=== PATIENT | female | born 1950 | race Caucasian/White ===

== ENCOUNTER 2021-08-12 14:41 | Outpatient (REF) | payer MEDICARE, OTHER, SELFPAY ==
[2021-08-14 12:33] LABS: COVID-19 RT-PCR UVMMC Result Negative (Negative)
== END 2021-08-12 14:42 | disposition home or self-care (01) ==
LOC: LBN 14:41
PROVIDERS: PCP Internal Medicine; Visit Provider Nurse Practitioner Family
DX: R35.0 Frequency of micturition (principal); Z20.822 Contact with and (suspected) exposure to COVID-19; J06.9 Acute upper respiratory infection, unspecified
CPT/HCPCS: 87077; U0003; 87086; 87186

== ENCOUNTER 2023-01-25 17:39 | Outpatient (CLI) | payer MEDICARE, SELFPAY ==
--- NOTE | 2023-01-25 | DI.RAD_ITS ---
Exam(s) XR SHOULDER RT COMPLETE 2+V EXAM: XR SHOULDER RT COMPLETE 2+V CLINICAL HISTORY: RT SHOULDER PAIN, M25.511, ? ARTHRITIS OR JT SPACE NARROWING. TECHNIQUE: 2D digital imaging was performed. COMPARISON: No exams were available for comparison FINDINGS: Six views No evidence of acute fracture or dislocation or abnormal soft tissue calcifications. Subacromial spa ce is not diminished. There are no obvious degenerative changes glenohumeral joint. Mild degenerati ve changes in the AC joint. Ipsilateral clavicle unremarkable. Bone density normal. No osseous les ions. IMPRESSION: No significant osseous findings in the right shoulder. Wet read DATA REPOSITORY: RADIATION DOSE DELIVERED:
== END 2023-01-25 17:59 ==
LOC: DI 17:40
PROVIDERS: PCP Internal Medicine; Visit Provider Physician Assistant Medical
DX: M25.511 Pain in right shoulder (principal)
CPT/HCPCS: 73030

== ENCOUNTER 2024-04-11 10:21 | Day surgery (SDC) | payer MEDICARE, SELFPAY ==
[2024-04-11 11:49] VITALS: BP 154/86; PULSE 70; RESP 18; TEMP 36.8; O2SAT 98
[2024-04-11] MEDS: Tropicam./Phenyleph. (1/2.5%) 5 ML BTL OD ×3 (11:55→12:06)
--- NOTE | 2024-04-11 11:56 | ANES.PREOP_ITS ---
General Info Date of Service Date Performed: 04/11/24 Height: 5 ft 3 in Weight: 137.3 kg Body Mass Index (BMI): 53.6 Surgical Procedure: Operation Date: 04/11/24 13:40 Proposed Procedure Side Surgeon p Cataract Extraction with IOL Implant Right Gomez Corrales MD Meds Allergies and Home Medications Allergies Allergy/AdvReac Type Severity Reaction Status Date / Time Penicillins Allergy unknown ? Verified 04/11/24 11:41 rash Sulfa (Sulfonamide Allergy ? rash Verified 04/11/24 11:41 Antibiotics) Home Medication ?Medication ?Instructions ?Recorded albuterol sulfate 90 mcg/actuation 2 puff inhalation Q4H PRN ##1 10/19/13 aerosol inhaler furosemide 20 mg tablet 20 mg PO PRN PRN 10/19/13 lisinopril 40 mg tablet 40 mg PO DAILY 10/19/13 omeprazole 20 mg capsule,delayed 20 mg PO DAILY 10/19/13 release pravastatin 40 mg tablet 40 mg PO DAILY 10/19/13 amlodipine 5 mg tablet 5 mg PO DAILY 03/26/24 diazepam 5 mg tablet 5 mg PO DIRECTED 03/26/24 doxepin 10 mg capsule 10 mg PO HS 03/26/24 fluoxetine 10 mg capsule 10 mg PO DAILY 03/26/24 fluoxetine 40 mg capsule 40 mg PO DAILY 03/26/24 furosemide 40 mg tablet 40 mg PO DAILY 03/26/24 metformin 500 mg tablet 500 mg PO DAILY 03/26/24 cholecalciferol (vitamin D3) 25 2,000 unit PO DAILY 04/11/24 mcg (1,000 unit) tablet (Vitamin D3) vitamins A,C,S-ytjh-dljjge 2,148 2 tab PO ONCE 04/11/24 mcg-113 mg-45 mg-17.4 mg tablet (PreserVision AREDS) Current Visit Medications: Current Medications Generic Name Dose Route Start Last Admin Trade Name Freq PRN Reason Stop Dose Admin Acetaminophen 1,000 mg 04/11/24 06:00 Acetaminophen 500 Mg Tab PO 05/11/24 05:59 Q4H PRN PRN Balanced Salt Solution 500 ml 04/11/24 06:00 Balanced Salt Soln.-Plus 500 Ml Bag OP 05/11/24 05:59 DIRECTED ALEJANDRO Miscellaneous Medication 0 ml 04/11/24 06:00 Prednisolone 1%, Moxifloxacin 0.5%, Bromfenac 0.09% 5ml Btl OD 05/11/24 05:59 DIRECTED COUNT INCLUDES THE [facility] Miscellaneous Medication 0 ml 04/11/24 06:00 Tropicam./Phenyleph. (1/2.5%) 5 Ml Btl OD 05/11/24 05:59 DIRECTED COUNT INCLUDES THE [facility] Tetracaine HCl 0 ml 04/11/24 06:00 Tetracaine 0.5% 4 Ml Btl OD 05/11/24 05:59 DIRECTED COUNT INCLUDES THE [facility] PFSH Active Problems Active Problems: Problem Status Onset Code Posterior subcapsular age-related cataract, right eye Acute H25.041 Cortical age-related cataract, right eye Acute H25.011 Nuclear age-related cataract, right eye Acute H25.11 Medical History Medical History TIERRA (obstructive sleep apnea) Incontinence Obesity Recurrent UTI Depression Hiatal hernia GERD (gastroesophageal reflux disease) HTN (hypertension) HLD (hyperlipidemia) Medical History Comments:: Per pt. states when she had previous procedure they have a hard time waking her up Surgical History Surgical History History of toe surgery History of bladder suspension procedure S/P rotator cuff repair History of bilateral knee replacement Tobacco Smoking/Tobacco Use Status: Former Tobacco Use Alcohol Alcohol Intake: never Substance Use Substance use: Never Substance use type: does not use Vital Signs and Lab Results Vital Signs Most Recent Vital Signs in EMR: Most Recent Vital Signs Temp Pulse Resp BP Pulse Ox 36.8 C 70 18 154/86 H 98 04/11/24 11:49 04/11/24 11:49 04/11/24 11:49 04/11/24 11:49 04/11/24 11:49 Point of Care Results Point of Care Results: Finger Stick Blood Glucose 97 04/11/24 11:25 Lab Results Blood Type / Crossmatch: No Data to Display Complete Blood Count: No Data to Display Complete Metabolic Panel: No Data to Display Liver Function Panel: No Data to Display Coagulation Panel: No Data to Display Cardiac Panel: No Data to Display Arterial Blood Gas: No Data to Display Venous Blood Gas: No Data to Display Pancreas Panel: No Data to Display Thyroid Panel: No Data to Display Infectious Disease: No Data to Display Blood Cultures: No Data to Display Toxicology Panel: No Data to Display Anesthesia Assessment and Plan Anesthesia History Personal History: Delayed Emergence Family History: No Family History of Anesthesia Complications Exercise Tolerance Exercise Tolerance: Metabolic Equivalents>4 Pertinent Negatives Pertinent Negatives: No Symptoms of GERD Cardiac & Pulmonary Exam Cardiac Exam: Normal S1/S2 Heart Sounds Pulmonary Exam: Clear Bilateral Breath Sounds Implantable Cardiac Device Does patient have a Pacemaker or an ICD?: No Airway Exam Known Difficult Airway: No Mallampati Class: 2 Mouth Opening: Normal (> 3cm) Thyromental Distance: Less than 3 cm Neck Range of Motion: Full ROM Neck Circumference: Normal Teeth Condition: Removable Dentures/Plates Upper and Removable Dentures/Plates Lower ASA Classification ASA Score: ASA 3 Emergency Case?: No NPO Status NPO Status: NPO Clears >2 hours, Solids >8 hours Anesthesia Plan Resuscitation Status: Full Code Anesthesia Technique: MAC Anesthesia Airway Planned: Natural Airway Monitors Used: Standard Monitors
[2024-04-11 11:57] VITALS: BMI 53.6
[2024-04-11] MEDS: Tetracaine 0.5% 4 ML BTL OD (13:08)
[2024-04-11] MEDS: Povidone-Iodine Ophth 30 ML BTL (13:09)
[2024-04-11] MEDS: Duovisc Viscoelastic System EACH 1 EACH (13:14)
[2024-04-11] MEDS: Balanced Salt Soln.-PLUS 500 ML BAG OP (13:14)
[2024-04-11] MEDS: Lidocaine 1% Pres-Free 5 ML VIAL (13:14)
[2024-04-11 13:30] VITALS: BP 166/84; PULSE 71; RESP 20; TEMP 36.4; O2SAT 94
--- NOTE | 2024-04-11 13:33 | W.PM.DSUDISC ---
Date of service: 04/11/24 Time of Service: 13:33 Discharge Plan Disposition Patient Disposition: Home Discharge Details Attending Provider: Gomez Corrales Primary Care Provider: Kadi Ryan Home Meds and New Rx's Prescriptions: No Action metformin 500 mg tablet 500 mg PO DAILY Patient Comments: TAKE ONE TABLET BY MOUTH EVERY DAY WITH MEALS diazepam 5 mg tablet 5 mg PO DIRECTED Patient Comments: TAKE 1 TABLET BY MOUTH 1 HOUR BEFORE MRI FOR CLAUSTROPHOBIA ,OK TO REPEAT ONE DOSE IF FIRST DOSE INEFFECTIVE amlodipine 5 mg tablet 5 mg PO DAILY Patient Comments: TAKE ONE TABLET BY MOUTH EVERY DAY doxepin 10 mg capsule 10 mg PO HS Patient Comments: TAKE ONE CAPSULE BY MOUTH AT BEDTIME furosemide 40 mg tablet 40 mg PO DAILY Patient Comments: TAKE ONE TABLET BY MOUTH EVERY DAY fluoxetine 40 mg capsule 40 mg PO DAILY Patient Comments: TAKE ONE CAPSULE BY MOUTH EVERY DAY fluoxetine 10 mg capsule 10 mg PO DAILY Patient Comments: TAKE ONE CAPSULE BY MOUTH EVERY DAY FOR 1 WEEK; THEN INCREASE TO TWO CAPSULES PER DAY pravastatin 40 MG tablet 40 mg PO DAILY omeprazole 20 MG capsule,delayed release(DR/EC) 20 mg PO DAILY furosemide 20 MG tablet 20 mg PO PRN PRN lisinopril 40 MG tablet 40 mg PO DAILY albuterol sulfate 8.5 GM HFA aerosol inhaler 2 puff Inhalation Q4H PRNQty: 1 0RF PreserVision AREDS 2,148 mcg-113 mg-45 mg-17.4mg tablet 2 tab PO ONCE Patient Comments: take on in AM one in PM Rx Instructions: administer with a meal cholecalciferol (vitamin D3) [Vitamin D3] 25 mcg (1,000 unit) tablet 2,000 unit PO DAILY Discharge Instructions Stand Alone Forms: DSU Post-Op CataractBlade (DSU) Discharge Orders Discharge Orders: Discharge Order (Routine); Ordered 04/11/24 Ordered By: Gomez Corrales DS: Diagnosis Discharge Diagnosis (1) Posterior subcapsular age-related cataract, right eye: Status: Resolved (2) Cortical age-related cataract, right eye: Status: Resolved (3) Nuclear age-related cataract, right eye: Status: Resolved
--- NOTE | 2024-04-11 13:34 | W.PM.OP ---
Date of service: 04/11/24 Time of Service: 13:34 Operative Note Operative Note DATE OF PROCEDURE: 04/11/24 PRE-OP DIAGNOSIS: Nuclear/posterior subcapsular cataract, right eye POST-OP DIAGNOSIS: same PROCEDURE: Cataract extraction using phacoemulsification with intraocular lens implant, right eye SURGEON: Gomez Corrales ANESTHESIA TYPE: Local By Surgeon and MAC Refer to Anesthesia Record ESTIMATED BLOOD LOSS: 0 PATHOLOGY: none sent COMPLICATIONS: None Patient was transported to: same day Patient's condition: stable Implants: Rhys Clareon [id number] Indications: Progressive decreased vision due to cataract, right eye Procedure Description: CATARACT SURGERY OPERATIVE REPORT PREOPERATIVE DIAGNOSIS: Nuclear/posterior subcapsular cataract, right eye POSTOPERATIVE DIAGNOSIS: Same OPERATION: Cataract extraction using phacoemulsification with posterior chamber intraocular lens implant, right eye. IOL: IOL Electrician Journeyman Wireman/Model: Rhys Clareon [id number] IOL Power: + 21.0 diopters IOL Serial Number: [id number] Optic Diameter: 6.0mm Haptic/Overall Diameter: 13.0mm PHACO INFO: Rhys Userstorylaburion Vision System with OZil and Active Fluidics Cumulative Dispersed Energy (CDE): 7.05 seconds SURGEON: Gomez Corrales MD, ASAD ANESTHESIA: Monitored Anesthesia Care (MAC), with local sub-tenon's anesthetic infiltration COMPLICATIONS: None SPECIMENS: None INDICATIONS FOR PROCEDURE: The patient is a 73-year-old lady with history of diminished visual acuity in her right eye secondary to the development of nuclear/posterior subcapsular cataract. She is significantly symptomatic that she desires cataract surgery and attempt to improve and maximize her vision. See office notes for detailed information. PROCEDURE: The correct surgical eye was identified and marked as the right eye and the pupil was dilated in the preoperative area using mydriatics and cycloplegics. The dilated pupil size was 7.0 mm. The patient elected to proceed without oral sedation. The patient was brought to the operating room where cardiopulmonary monitoring was instituted and surgical time-out was performed, confirming the correct operative eye and IOL power. Topical anesthesia was administered and ophthalmic povidone-iodine 5% was instilled into the conjunctival fornices. The nevaeh-ocular area was prepped with Betadine 10% solution and draped in the usual sterile fashion for intraocular surgery, including an aperture drape. A Tegaderm transparent film dressing was cut in half and used to cover the lashes and lid margins. Care was taken to sequester the lashes and lid margins under the Tegaderm dressing. A lid speculum was placed between the lids of the operative eye and the Rhys LuxOR Revalia operating microscope was maneuvered into position. Madeleine scissors were then used to make a conjunctival buttonhole approximately 6mm posterior to the limbus in the inferonasal quadrant. Blunt dissection was carried out to expose bare sclera, and a blunt-tipped sub-tenon?s anesthesia cannula was introduced and passed posteriorly along the globe where non-preserved plain lidocaine was injected into posterior sub-Tenon?s space. A sideport knife was used to make a paracentesis port. Intraocular phenylephrine/lidocaine was injected into the anterior chamber. The anterior chamber was then filled with viscoelastic. A keratome knife was used to construct a two--plane clear corneal tunnel extending 2.0mm into clear cornea. A flap was raised on the anterior capsule and capsulorhexis forceps were used to complete a continuous curvilinear capsulorhexis of 5.5 mm. Balanced salt solution was then used to perform cortical cleaving hydrodissection and nuclear hydrodelineation until the lens could be freely rotated within the capsular bag. The lens nucleus was then disassembled and removed within the capsular bag and iris plane using phacoemulsification. Residual cortical material was removed using the I/A handpiece. The posterior capsule was carefully polished to remove as much residual lens epithelial cells as safely possible. The capsular bag was then inflated and the anterior chamber deepened with cohesive viscoelastic. The lens implant described above was inserted into the capsular bag using the Rhys Autonome Injector. A Kuglen hook was used to dial the IOL into position. Residual viscoelastic was then removed first from posterior to the IOL, then from the anterior chamber using the I/A handpiece. The lens implant was noted to center nicely within the capsular bag. The incisions were stromally hydrated, and the anterior chamber was reformed using BSS. Then 0.5cc of moxifloxacin 1.0mg/ml were injected into the capsular bag and anterior chamber. The incisions were checked with a Weck spear and found to be secure. Several drops of ophthalmic povidone-iodine 5% were then applied to the eye followed by two drops of combination steroid/NSAID/antibiotic solution. The drapes were removed and a clear plastic protective eye shield was placed over the eye. The patient was then returned to Same Day Surgery in stable condition.
--- NOTE | 2024-04-11 14:52 | W.ANESPOSTOP ---
Postoperative Evaluation Date, Time and Location Date Performed: 04/11/24 Time Performed: 13:35 Patient Location: Day Surgery Unit Vital Signs Most Recent Imported Vital Signs: Most Recent Vital Signs Temp Pulse Resp BP Pulse Ox 36.4 C L 71 20 166/84 H 94 04/11/24 13:30 04/11/24 13:30 04/11/24 13:30 04/11/24 13:30 04/11/24 13:30 Pain Score Most Recent Pain Score: Most Recent Pain Score Pain Level 0 04/11/24 13:30 Assessment Mental Status: Awake (Alert & Oriented to Patient Baseline) Airway and Respiratory Function: Patent airway with normal (patient baseline) respiratory exam Cardiovascular Function: Hemodynamically Stable Hydration Status: Adequately Hydrated Nausea & Vomiting: No Nausea or Vomiting Pain: Pt. Denies Any Pain Peripheral Nerve Block: Patient did not receive a nerve block
== END 2024-04-11 14:00 | disposition home or self-care (01) ==
PROVIDERS: PCP Internal Medicine; Visit Provider Ophthalmology
PROC: (CPT 66984; principal; 2024-04-11 13:30)
DX: H25.041 Posterior subcapsular polar age-related cataract, right eye (principal); H25.011 Cortical age-related cataract, right eye; H25.11 Age-related nuclear cataract, right eye
CPT/HCPCS: 66984; 00123; V2632; J2003

== ENCOUNTER 2024-05-28 10:26 | Outpatient (CLI) | payer MEDICARE, SELFPAY ==
--- NOTE | 2024-05-28 06:00 | DI.RAD_ITS ---
Exam(s) XR PAIN CLINIC LUMBAR SP 2V EXAM: XR PAIN CLINIC LUMBAR SP 2V CLINICAL HISTORY: Dx: Lumbar Spondylosis. TECHNIQUE: Fluoroscopy was provided for the referring physician for guidance with performing pain cl inic injection procedure. COMPARISON: No exams were available for comparison FINDINGS: Please see procedure note for details. Fluoro time: 25.3 seconds RADIATION DOSE DELIVERED: Evar=20.36 mGy
[2024-05-28 10:35] VITALS: BP 129/80; PULSE 84; RESP 18; TEMP 36.7; O2SAT 96
--- NOTE | 2024-05-28 11:05 | PDOC.PAIN ---
Date of service: 05/28/24 Time of Service: 11:33 Pain Managment Procedure Note Procedure Note Procedure Note: Lumbar Medial Branch Block ? Location: Bilateral Medial Branches ? Levels: L3,4,5? (L4-5, L5-S1 FACET) ? Pre-procedure Diagnosis: M47.817 Spondylosis without myelopathy or radiculopathy, lumbosacral region M47.816 Spondylosis without myelopathy or radiculopathy, lumbar region ? Post-procedure Diagnosis:? The same as above ? Sedation: NONE? Estimated blood loss:? less than 2 cc ? Surgeon:? Elian Fonseca MD COMMENT: PRE PROCEDURE PAIN SCORE: 6/10 ? Procedure Detail:? The procedure and potential risks were explained to the patient and informed written consent was obtained. The patient was escorted to the procedure room and placed in the prone position. Pillows were utilized for proper positioning and comfort.? Time out was performed in procedure room with nursing staff confirming the patient's identity, procedure to be performed, allergies, and any blood thinning or anti-platelet medications. The patient's lower back was prepped with chlorhexidine and draped in a sterile fashion. Sterile technique was maintained throughout the procedure.? Sterile gloves were used, a face mask was worn, and new single dose vials of all medications were used with the top being swabbed with alcohol and given time to dry prior to withdrawal of medication.? A left AND right-sided oblique fluoroscopic view was obtained, with visualization of the: ?RIGHT and LEFT L3,4 and DORSAL RAMUS L5 AT SACRAL ALA ? junction of the transverse process and superior articular process. Lidocaine 1% was used to anesthetize the skin. A 22-gauge 5 Quincke needle was advanced along the superior margin of the transverse process and lateral to the articular process.? It was directed inferiorly and medially so that the tip struck the junction of the base of the transverse process and the superior articular process. The needle was then walked over the superior aspect of the transverse process and advanced slightly along the course of the L3,4,5 medial branch nerves. Proper placement was verified in A/P, oblique and lateral views under fluoroscopy. At this location, following negative aspiration, 0.5cc 0.5% bupivacaine was injected.? The patient tolerated the procedure well and was transported to the recovery area for observation and discharge instructions. Permanent images saved and recorded. Follow-up:? The patient will return in 2 weeks for confirmatory LMBBs if they? meet the criteria from today's procedure lasting for at least 2 hours.? COMMENT: POST 0/10- WILL NEED 150MM NEEDLES Before the patient left patient had greater than 100% pain relief.
[2024-05-28 11:07] VITALS: O2SAT 86
[2024-05-28 11:10] VITALS: O2SAT 92
[2024-05-28 11:15] VITALS: O2SAT 93
[2024-05-28 11:20] VITALS: O2SAT 90
[2024-05-28 11:25] VITALS: O2SAT 91
[2024-05-28] MEDS: Nerve Block Tray 1 EACH MC (11:35)
[2024-05-28] MEDS: Bupivacaine 0.5% Pres-Free 10 ML VIAL IJ (11:35)
== END 2024-05-28 10:27 | disposition home or self-care (01) ==
LOC: PC 10:26
PROVIDERS: PCP Internal Medicine; Visit Provider Anesthesiology Pain Medicine
DX: M54.50 Low back pain, unspecified (principal); M47.817 Spondylosis without myelopathy or radiculopathy, lumbosacral region; M47.816 Spondylosis without myelopathy or radiculopathy, lumbar region
CPT/HCPCS: 00123; 64493; 64494; 64495; 72100; J0665

== ENCOUNTER 2024-05-30 08:37 | Day surgery (SDC) | payer MEDICARE, SELFPAY ==
--- NOTE | 2024-05-29 19:44 | W.PREOPHP ---
Assessment and Plan Assessment and plan (1) Posterior subcapsular age-related cataract of left eye: Status: Acute Assessment and plan: Assessment: Visually significant cataract, left eye. Plan: Cataract extraction with intraocular lens implant, left eye. (2) Nuclear age-related cataract, left eye: Status: Acute Assessment and plan: Assessment: Visually significant cataract, left eye. Plan: Cataract extraction with intraocular lens implant, left eye. History of Present Illness History of Present Illness Chief Complaint: Progressive decreased vision left eye Narrative: The patient is a 73-year-old lady with history of diminished visual acuity in both eyes at both distance and near. She notes significant difficulty reading street signs and with night driving. She has trouble reading fine print on pill bottles and also difficulty with her balance. On examination she was noted to have moderate bilateral cataracts, right eye greater than left. She underwent cataract surgery in the right eye on 04/11/2024 and postoperatively she is doing well. She now presents for cataract surgery in her left eye. Review of Systems All systems reviewed & are unremarkable except as noted in HPI and below PFSH All Active Problems (Updated 05/30/24 @ 08:56 by Yarely Jim, RN) Posterior subcapsular age-related cataract of left eye (Acute) Nuclear age-related cataract, left eye (Acute) Radiculitis, cervical (Acute) Lumbar spondylosis (Acute) Medical History (Updated 05/30/24 @ 08:56 by Yarely Jim, RN) UTI (urinary tract infection) Spondylolisthesis of lumbar region Paresthesia of arm Neurogenic claudication Morbid obesity Lumbar spinal stenosis Low back pain Iron deficiency Gallstones Anemia Pneumonia Elevated cholesterol Diverticulitis Polyp of descending colon Cervicalgia Cervical spinal stenosis Cataract Balance problem Arthritis TIERRA (obstructive sleep apnea) Incontinence Obesity Recurrent UTI Depression Hiatal hernia GERD (gastroesophageal reflux disease) HTN (hypertension) HLD (hyperlipidemia) Surgical History Hx of tonsillectomy H/O breast biopsy H/O arthroscopic knee surgery H/O arthroscopy of shoulder H/O adenoidectomy Hx of colonoscopy History of esophagogastroduodenoscopy (EGD) History of toe surgery History of bladder suspension procedure S/P rotator cuff repair History of bilateral knee replacement Family History Father Diabetes Heart disease Mother Diabetes Heart disease Kidney stone Social History Smoking/Tobacco Use Status: Former Tobacco Use Quit Date: 09/17/12 Smoking risk assessment performed?: Yes Alcohol Intake: former Drug use: Never Substance use type: does not use Details: Pt ambulatory with steady gait with use of cane. Pt reported pain in lower back area. Pt reports no changes in pain location and current LOP is 8/10. Pt denies any recent falls or injuries. Housing: house Do you feel safe at home: Yes Do you feel safe in your relationship?: Yes Meds Allergies and Home Medications Allergies Allergy/AdvReac Type Severity Reaction Status Date / Time codeine Allergy Unknown Other (See Verified 05/30/24 09:04 Comment) cortisone Allergy Unknown Other (See Verified 05/30/24 09:04 Comment) Penicillins Allergy unknown ? Verified 05/30/24 09:04 rash Sulfa (Sulfonamide Allergy ? rash Verified 05/30/24 09:04 Antibiotics) Home Medications ?Medication ?Instructions ?Recorded ?Confirmed ?Type albuterol sulfate 90 mcg/actuation 2 puff inhalation Q4H PRN ##1 10/19/13 05/30/24 Rx aerosol inhaler lisinopril 40 mg tablet 40 mg PO DAILY 10/19/13 05/30/24 History omeprazole 20 mg capsule,delayed 20 mg PO DAILY 10/19/13 05/30/24 History release pravastatin 40 mg tablet 40 mg PO DAILY 10/19/13 05/30/24 History amlodipine 5 mg tablet 5 mg PO DAILY 03/26/24 05/30/24 History doxepin 10 mg capsule 10 mg PO HS 03/26/24 05/30/24 History fluoxetine 40 mg capsule 40 mg PO DAILY 03/26/24 05/30/24 History furosemide 40 mg tablet 40 mg PO DAILY 03/26/24 05/30/24 History cholecalciferol (vitamin D3) 25 2,000 unit PO DAILY 04/11/24 05/30/24 History mcg (1,000 unit) tablet (Vitamin D3) vitamins A,C,C-fupn-trqqxn 2,148 2 tab PO ONCE 04/11/24 05/30/24 History mcg-113 mg-45 mg-17.4 mg tablet (PreserVision AREDS) desloratadine 5 mg tablet 5 mg PO DAILY 04/30/24 05/30/24 History acetaminophen 650 mg 650 mg PO Q8H 05/20/24 05/30/24 History tablet,extended release (Tylenol Arthritis Pain) gabapentin 300 mg capsule 300 mg PO TID 05/20/24 05/30/24 History cephalexin 500 mg capsule 500 mg PO TID 05/30/24 05/30/24 History Exam Eyes Other: Most recent ocular examination is significant for uncorrected visual acuity of 20/50 OD, pinhole into 2019. Corrected visual acuity in the left eye is 20/30. Extract motility is normal. Intraocular pressure measures 12 OD, 25 OS. Slit-lamp examination is significant for a well-positioned PCIOL OD with clear posterior capsule. 2+ nuclear cataract is present OS. Funduscopic examination shows disc cupping of 0.45 OD, 0.55 OS. 1+ drusen are present in the left macula. Of the right macula is normal. Peripheral retina and vitreous is normal. Resp Auscultation: clear to auscultation bilaterally Cardio Rate: regular rate Rhythm: regular rhythm
--- NOTE | 2024-05-30 06:21 | ANES.PREOP_ITS ---
General Info Date of Service Date Performed: 05/30/24 Height: 5 ft 3 in Weight: 136.078 kg Body Mass Index (BMI): 53.1 Surgical Procedure: Operation Date: 05/30/24 09:55 Proposed Procedure Side Surgeon p Cataract Extraction with IOL Implant Left Gomez Corrales MD Meds Allergies and Home Medications Allergies Allergy/AdvReac Type Severity Reaction Status Date / Time codeine Allergy Unknown Other (See Verified 05/30/24 09:04 Comment) cortisone Allergy Unknown Other (See Verified 05/30/24 09:04 Comment) Penicillins Allergy unknown ? Verified 05/30/24 09:04 rash Sulfa (Sulfonamide Allergy ? rash Verified 05/30/24 09:04 Antibiotics) Home Medication ?Medication ?Instructions ?Recorded albuterol sulfate 90 mcg/actuation 2 puff inhalation Q4H PRN ##1 10/19/13 aerosol inhaler lisinopril 40 mg tablet 40 mg PO DAILY 10/19/13 omeprazole 20 mg capsule,delayed 20 mg PO DAILY 10/19/13 release pravastatin 40 mg tablet 40 mg PO DAILY 10/19/13 amlodipine 5 mg tablet 5 mg PO DAILY 03/26/24 doxepin 10 mg capsule 10 mg PO HS 03/26/24 fluoxetine 40 mg capsule 40 mg PO DAILY 03/26/24 furosemide 40 mg tablet 40 mg PO DAILY 03/26/24 cholecalciferol (vitamin D3) 25 2,000 unit PO DAILY 04/11/24 mcg (1,000 unit) tablet (Vitamin D3) vitamins A,C,S-mfsf-dkpkgm 2,148 2 tab PO ONCE 04/11/24 mcg-113 mg-45 mg-17.4 mg tablet (PreserVision AREDS) desloratadine 5 mg tablet 5 mg PO DAILY 04/30/24 acetaminophen 650 mg 650 mg PO Q8H 05/20/24 tablet,extended release (Tylenol Arthritis Pain) gabapentin 300 mg capsule 300 mg PO TID 05/20/24 cephalexin 500 mg capsule 500 mg PO TID 05/30/24 Current Visit Medications: Current Medications Generic Name Dose Route Start Last Admin Trade Name Freq PRN Reason Stop Dose Admin Acetaminophen 1,000 mg 05/30/24 06:00 Acetaminophen 500 Mg Tab PO 06/29/24 05:59 Q4H PRN PRN Balanced Salt Solution 500 ml 05/30/24 06:00 Balanced Salt Soln.-Plus 500 Ml Bag OP 06/29/24 05:59 DIRECTED ALEJANDRO Miscellaneous Medication 0 ml 05/30/24 06:00 Prednisolone 1%, Moxifloxacin 0.5%, Bromfenac 0.09% 5.6ml Btl OS 06/29/24 05:59 DIRECTED ALEJANDRO Miscellaneous Medication 0 ml 05/30/24 06:00 Tropicam./Phenyleph. (1/2.5%) 5 Ml Btl OS 06/29/24 05:59 DIRECTED ALEJANDRO Tetracaine HCl 0 ml 05/30/24 06:00 Tetracaine 0.5% 4 Ml Btl OS 06/29/24 05:59 DIRECTED ALEJANDRO PFSH Active Problems Active Problems: Problem Status Onset Code Posterior subcapsular age-related cataract of left eye Acute H25.042 Nuclear age-related cataract, left eye Acute H25.12 Radiculitis, cervical Acute M54.12 Lumbar spondylosis Acute M47.816 Posterior subcapsular age-related cataract, right eye Resolved H25.041 Cortical age-related cataract, right eye Resolved H25.011 Nuclear age-related cataract, right eye Resolved H25.11 Medical History Medical History Spondylolisthesis of lumbar region Paresthesia of arm Neurogenic claudication Morbid obesity Lumbar spinal stenosis Low back pain Iron deficiency Gallstones Anemia Pneumonia Elevated cholesterol Diverticulitis Polyp of descending colon Cervicalgia Cervical spinal stenosis Cataract Balance problem Arthritis TIERRA (obstructive sleep apnea) Incontinence Obesity Recurrent UTI Depression Hiatal hernia GERD (gastroesophageal reflux disease) HTN (hypertension) HLD (hyperlipidemia) Medical History Comments:: Had nerve block in back 05/28/24 Surgical History Surgical History Hx of tonsillectomy H/O breast biopsy H/O arthroscopic knee surgery H/O arthroscopy of shoulder H/O adenoidectomy Hx of colonoscopy History of esophagogastroduodenoscopy (EGD) History of toe surgery History of bladder suspension procedure S/P rotator cuff repair History of bilateral knee replacement Tobacco Smoking/Tobacco Use Status: Former Tobacco Use Alcohol Alcohol Intake: former Substance Use Substance use: Never Substance use type: does not use Details: Pt ambulatory with steady gait with use of cane. Pt reported pain in lower back area. Pt reports no changes in pain location and current LOP is 8/10. Pt denies any recent falls or injuries. Vital Signs and Lab Results Vital Signs Most Recent Vital Signs in EMR: Temp Pulse Resp BP Pulse Ox 36.8 C 78 16 145/72 H 93 05/30/24 08:51 05/30/24 08:51 05/30/24 08:51 05/30/24 08:51 05/30/24 08:51 Lab Results Blood Type / Crossmatch: No Data to Display Complete Blood Count: No Data to Display Complete Metabolic Panel: No Data to Display Liver Function Panel: No Data to Display Coagulation Panel: No Data to Display Cardiac Panel: No Data to Display Arterial Blood Gas: No Data to Display Venous Blood Gas: No Data to Display Pancreas Panel: No Data to Display Thyroid Panel: 2 No Data to Display Infectious Disease: No Data to Display Blood Cultures: No Data to Display Toxicology Panel: No Data to Display Anesthesia Assessment and Plan Anesthesia History Personal History: Delayed Emergence Family History: No Family History of Anesthesia Complications Exercise Tolerance Exercise Tolerance: Metabolic Equivalents>4 Cardiac & Pulmonary Exam Cardiac Exam: Normal S1/S2 Heart Sounds Pulmonary Exam: Clear Bilateral Breath Sounds Implantable Cardiac Device Does patient have a Pacemaker or an ICD?: No Airway Exam Known Difficult Airway: No Mallampati Class: 2 Mouth Opening: Normal (> 3cm) Thyromental Distance: Less than 3 cm Neck Range of Motion: Full ROM Neck Circumference: Normal Teeth Condition: Removable Dentures/Plates Upper and Removable Dentures/Plates Lower ASA Classification ASA Score: ASA 3 Emergency Case?: No NPO Status NPO Status: NPO Clears >2 hours, Solids >8 hours Anesthesia Plan Resuscitation Status: Full Code Anesthesia Technique: MAC Anesthesia Airway Planned: Natural Airway Monitors Used: Standard Monitors Preoperative Comments:: 73 yo for cataract removal. previous with no MKO, no issues.
[2024-05-30 08:51] VITALS: BP 145/72; PULSE 78; RESP 16; TEMP 36.8; O2SAT 93
[2024-05-30] MEDS: Tropicam./Phenyleph. (1/2.5%) 5 ML BTL OS ×3 (08:52→09:14)
[2024-05-30 09:20] VITALS: BMI 53.1
[2024-05-30] MEDS: Prednisolone 1%, Moxifloxacin 0.5%, Bromfenac 0.09% 5.6ML BTL OS (10:03)
[2024-05-30] MEDS: Balanced Salt Soln.-PLUS 500 ML BAG OP (10:04)
[2024-05-30] MEDS: Povidone-Iodine Ophth 30 ML BTL (10:04)
[2024-05-30] MEDS: Duovisc Viscoelastic System EACH 1 EACH (10:06)
[2024-05-30] MEDS: Lidocaine 1% Pres-Free 5 ML VIAL (10:07)
[2024-05-30 10:16] VITALS: BP 141/80; PULSE 74; RESP 16; TEMP 36.1; O2SAT 94
--- NOTE | 2024-05-30 10:16 | W.PM.DSUDISC ---
Date of service: 05/30/24 Time of Service: 10:17 Discharge Plan Disposition Patient Disposition: Home Discharge Details Attending Provider: Gomez Corrales Primary Care Provider: Kadi Ryan Home Meds and New Rx's Prescriptions: No Action acetaminophen [Tylenol Arthritis Pain] 650 mg tablet extended release 650 mg PO Q8H gabapentin 300 mg capsule 300 mg PO TID amlodipine 5 mg tablet 5 mg PO DAILY Patient Comments: TAKE ONE TABLET BY MOUTH EVERY DAY doxepin 10 mg capsule 10 mg PO HS Patient Comments: TAKE ONE CAPSULE BY MOUTH AT BEDTIME furosemide 40 mg tablet 40 mg PO DAILY Patient Comments: TAKE ONE TABLET BY MOUTH EVERY DAY fluoxetine 40 mg capsule 40 mg PO DAILY Patient Comments: TAKE ONE CAPSULE BY MOUTH EVERY DAY desloratadine 5 mg tablet 5 mg PO DAILY pravastatin 40 MG tablet 40 mg PO DAILY omeprazole 20 MG capsule,delayed release(DR/EC) 20 mg PO DAILY lisinopril 40 MG tablet 40 mg PO DAILY albuterol sulfate 8.5 GM HFA aerosol inhaler 2 puff Inhalation Q4H PRNQty: 1 0RF PreserVision AREDS 2,148 mcg-113 mg-45 mg-17.4mg tablet 2 tab PO ONCE Patient Comments: take on in AM one in PM Rx Instructions: administer with a meal cholecalciferol (vitamin D3) [Vitamin D3] 25 mcg (1,000 unit) tablet 2,000 unit PO DAILY cephalexin 500 mg capsule 500 mg PO TID Discharge Instructions Stand Alone Forms: DSU Post-Op CataractBlade (DSU) Discharge Orders Discharge Orders: Discharge Order (Routine); Ordered 05/30/24 Ordered By: Gomez Corrales DS: Diagnosis Discharge Diagnosis (1) Posterior subcapsular age-related cataract of left eye: Status: Resolved (2) Nuclear age-related cataract, left eye: Status: Resolved
--- NOTE | 2024-05-30 10:17 | ROE_ITS ---
Date of service: 05/30/24 Time of Service: 10:17 Operative Note Operative Note DATE OF PROCEDURE: 05/30/24 PRE-OP DIAGNOSIS: Nuclear/posterior subcapsular cataract, left eye POST-OP DIAGNOSIS: same PROCEDURE: Cataract extraction using phacoemulsification with intraocular lens implant, left eye SURGEON: Gomez Corrales ANESTHESIA TYPE: Local By Surgeon and MAC Refer to Anesthesia Record PATHOLOGY: none sent COMPLICATIONS: None Patient was transported to: same day Patient's condition: stable Implants: Rhys Clareon [id number] Indications: Progressive decreased vision due to cataract, left eye Procedure Description: CATARACT SURGERY OPERATIVE REPORT PREOPERATIVE DIAGNOSIS: Nuclear/posterior subcapsular cataract, left eye POSTOPERATIVE DIAGNOSIS: Same OPERATION: Cataract extraction using phacoemulsification with posterior chamber intraocular lens implant, left eye. IOL: IOL Flamer After Lasting/Model: Rhys Clareon [id number] IOL Power: + 22.0 diopters IOL Serial Number: [id number] Optic Diameter: 6.0mm Haptic/Overall Diameter: 13.0mm PHACO INFO: RhysEnduraCare AcuteCareurion Vision System with OZil and Active Fluidics Cumulative Dispersed Energy (CDE): 5.64 seconds SURGEON: Gomez Corrales MD, ASAD ANESTHESIA: Monitored Anesthesia Care (MAC), with local sub-tenon's anesthetic infiltration COMPLICATIONS: None SPECIMENS: None INDICATIONS FOR PROCEDURE: The patient is a 73-year-old lady with history of diminished visual acuity in both eyes secondary to the development of bilateral nuclear/posterior subcapsular cataract. She has already undergone cataract surgery in the right eye and is doing well postoperatively. She now presents for cataract surgery in the left eye. See office notes for detailed information. PROCEDURE: The correct surgical eye was identified and marked as the left eye and the pupil was dilated in the preoperative area using mydriatics and cycloplegics. The dilated pupil size was 7.0 mm. The patient elected to proceed without oral sedation. The patient was brought to the operating room where cardiopulmonary monitoring was instituted and surgical time-out was performed, confirming the correct operative eye and IOL power. Topical anesthesia was administered and ophthalmic povidone-iodine 5% was instilled into the conjunctival fornices. The nevaeh-ocular area was prepped with Betadine 10% solution and draped in the usual sterile fashion for intraocular surgery, including an aperture drape. A Tegaderm transparent film dressing was cut in half and used to cover the lashes and lid margins. Care was taken to sequester the lashes and lid margins under the Tegaderm dressing. A lid speculum was placed between the lids of the operative eye and the Rhys LuxOR Revalia operating microscope was maneuvered into position. Madeleine scissors were then used to make a conjunctival buttonhole approximately 6mm posterior to the limbus in the inferonasal quadrant. Blunt dissection was carried out to expose bare sclera, and a blunt-tipped sub-tenon?s anesthesia cannula was introduced and passed posteriorly along the globe where non- preserved plain lidocaine was injected into posterior sub-Tenon?s space. A sideport knife was used to make a paracentesis port. Intraocular phenylephrine/lidocaine was injected into the anterior chamber. The anterior chamber was then filled with viscoelastic. A keratome knife was used construct a two-plane clear corneal tunnel extending 2.0mm into clear cornea. A flap was raised on the anterior capsule and capsulorhexis forceps were used to complete a continuous curvilinear capsulorhexis of 5.5 mm. Balanced salt solution was then used to perform cortical cleaving hydrodissection and nuclear hydrodelineation until the lens could be freely rotated within the capsular bag. The lens nucleus was then disassembled and removed within the capsular bag and iris plane using phacoemulsification. Residual cortical material was removed using the irrigation/aspiration handpiece. The posterior capsule was carefully polished to remove as much residual lens epithelial cells as safely possible. The capsular bag was then inflated and the anterior chamber deepened with viscoelastic. The lens implant described above was inserted into the capsular bag using the Rhys Autonome Injector. A Kuglen hook was used to dial the IOL into position. Residual viscoelastic was then removed first from posterior to the IOL, then from the anterior chamber using the I/A handpiece. The lens implant was noted to center nicely within the capsular bag. The incisions were stromally hydrated, and the anterior chamber was reformed using BSS. Then 0.5cc of moxifloxacin 1.0mg/ml were injected into the capsular bag and anterior chamber. The incisions were checked with a Weck spear and found to be secure. Several drops of ophthalmic povidone-iodine 5% were then applied to the eye followed by two drops of combination steroid/NSAID/antibiotic solution. The drapes were removed and a clear plastic protective eye shield was placed over the eye. The patient was then returned to Same Day Surgery in stable condition.
--- NOTE | 2024-05-30 10:27 | W.ANESPOSTOP ---
Postoperative Evaluation Date, Time and Location Date Performed: 05/30/24 Time Performed: 10:27 Patient Location: Day Surgery Unit Vital Signs Most Recent Imported Vital Signs: Most Recent Vital Signs Temp Pulse Resp BP Pulse Ox 36.1 C L 74 16 141/80 H 94 05/30/24 10:16 05/30/24 10:16 05/30/24 10:16 05/30/24 10:16 05/30/24 10:16 Pain Score Most Recent Pain Score: Most Recent Pain Score Pain Level 0 05/30/24 10:16 Assessment Mental Status: Awake (Alert & Oriented to Patient Baseline) Airway and Respiratory Function: Patent airway with normal (patient baseline) respiratory exam Cardiovascular Function: Hemodynamically Stable Hydration Status: Adequately Hydrated Nausea & Vomiting: No Nausea or Vomiting Pain: Pt. Denies Any Pain Peripheral Nerve Block: Patient did not receive a nerve block
[2024-05-31] MEDS: Tetracaine 0.5% 4 ML BTL OS (10:00)
== END 2024-05-30 10:33 | disposition home or self-care (01) ==
LOC: SUR 08:37
PROVIDERS: PCP Internal Medicine; Visit Provider Ophthalmology
PROC: (CPT 66984; principal; 2024-05-30 09:45)
DX: H25.042 Posterior subcapsular polar age-related cataract, left eye (principal); H25.12 Age-related nuclear cataract, left eye; Z98.41 Cataract extraction status, right eye
CPT/HCPCS: 66984; 00123; V2632; J2003

== ENCOUNTER 2024-06-17 08:19 | Outpatient (CLI) | payer MEDICARE, SELFPAY ==
--- NOTE | 2024-06-17 06:00 | DI.RAD_ITS ---
Exam(s) XR PAIN CLINIC LUMBAR SP 2V EXAM: XR PAIN CLINIC LUMBAR SP 2V CLINICAL HISTORY: Dx: Lumbar Spondylosis TECHNIQUE: 2D and realtime digital imaging was performed. CONTRAST MATERIAL: Refer to procedure report. COMPARISON: No exams were available for comparison FINDINGS: Fluoroscopy was provided for Dr. Fonseca during the performance of a bilateral lumbar medial branch block. Please refer to the procedure report for complete details. Ka,r=23.9 mGy IMPRESSION: RADIATION DOSE DELIVERED: 0.0 0.0 0
[2024-06-17 08:32] VITALS: BP 150/92; PULSE 69; RESP 20; TEMP 36.7; O2SAT 96
--- NOTE | 2024-06-17 08:55 | PDOC.PAIN_ITS ---
Date of service: 06/17/24 Time of Service: 09:19 Pain Managment Procedure Note Procedure Note Procedure Note: Location: Bilateral Medial Branches ? Levels: L3,4,5? (L4-5, L5-S1 FACET) ? Pre-procedure Diagnosis: M47.817 Spondylosis without myelopathy or radiculopathy, lumbosacral region M47.816 Spondylosis without myelopathy or radiculopathy, lumbar region ? Post-procedure Diagnosis:? The same as above ? Sedation: NONE? Estimated blood loss:? less than 2 cc ? Surgeon:? Elian Fonseca MD COMMENT: Patient had? GREATER THAN 80 % relief after the first medial branch block for greater than the duration of the local anesthetic.? Using 7 needles PRE PROCEDURE PAIN SCORE: 7/10 ? Procedure Detail:? The procedure and potential risks were explained to the patient and informed written consent was obtained. The patient was escorted to the procedure room and placed in the prone position. Pillows were utilized for proper positioning and comfort.? Time out was performed in procedure room with nursing staff confirming the patient's identity, procedure to be performed, allergies, and any blood thinning or anti-platelet medications. The patient's lower back was prepped with chlorhexidine and draped in a sterile fashion. Sterile technique was maintained throughout the procedure.? Sterile gloves were used, a face mask was worn, and new single dose vials of all medications were used with the top being swabbed with alcohol and given time to dry prior to withdrawal of medication.? A left and right-sided oblique fluoroscopic view was obtained, with visualization of the: ?RIGHT and LEFT L3,4 and DORSAL RAMUS L5 AT SACRAL ALA ? junction of the transverse process and superior articular process. Lidocaine 1% was used to anesthetize the skin. A 22-gauge 7 Quincke needle was advanced along the superior margin of the transverse process and lateral to the articular process.? It was directed inferiorly and medially so that the tip struck the junction of the base of the transverse process and the superior articular process. The needle was then walked over the superior aspect of the transverse process and advanced slightly along the course of the L3,4,5 medial branch ner ves. Proper placement was verified in A/P, oblique and lateral views under fluoroscopy. At this location, following negative aspiration, 0.5cc 2% lidocaine was injected.? The patient tolerated the procedure well and was transported to the recovery area for observation and discharge instructions. Permanent images saved and recorded. Follow-up:?? Will plan to proceed with lumbar medial branch RFA if the patient gets good relief from today's procedure lasting for at least 2 hours. Will need 150mm needles COMMENT:Pain went from 7/10 to 3/10. Before the patient left patient had 60% pain relief.
[2024-06-17 08:57] VITALS: O2SAT 86
[2024-06-17 09:00] VITALS: O2SAT 92
[2024-06-17 09:10] VITALS: O2SAT 91
[2024-06-17] MEDS: Lidocaine 2% Pres-Free 5 ML VIAL IJ (09:20)
[2024-06-17] MEDS: Nerve Block Tray 1 EACH MC (09:20)
== END 2024-06-17 08:20 | disposition home or self-care (01) ==
LOC: PC 08:20
PROVIDERS: PCP Internal Medicine; Visit Provider Anesthesiology Pain Medicine
DX: M54.50 Low back pain, unspecified (principal); M47.817 Spondylosis without myelopathy or radiculopathy, lumbosacral region; M47.816 Spondylosis without myelopathy or radiculopathy, lumbar region
CPT/HCPCS: 00123; 64493; 64494; 72100

== ENCOUNTER 2024-07-14 07:35 | Outpatient (CLI) | payer MEDICARE, SELFPAY ==
[2024-07-14] VITALS (18 sets, daily range): BP systolic 104–158; BP diastolic 56–91; PULSE 62–81; RESP 15–21; TEMP 36.7; O2SAT 88–94
--- NOTE | 2024-07-14 07:48 | PDOC.PAIN ---
Date of service: 07/14/24 Time of Service: 09:37 Pain Managment Procedure Note Procedure Note Procedure Note: Lumbar Medial Branch COOLED Radiofrequency Ablation COMMENT: Patient had greater than 80 % relief after 2 medial branch blocks . ? Location: Bilateral L3, and L4 medial Branches and dorsal ramus of L5 (L4-5, and L5-S1 joints) ? Pre-procedure Diagnosis: M47.817 Spondylosis without myelopathy or radiculopathy, lumbosacral region ? Post-procedure Diagnosis:? The same as above ? Sedation:? 1mg of intravenous midazolam was administered. fentanyl 25 mcg? An independent trained observer monitored the patient for the duration of the procedure.? Estimated blood loss:? less than 2 cc ? Surgeon: Elian Fonseca MD COMMENT: NEEDS 150 MM NEEDLE ? Procedure Detail:? The procedure and potential risks were explained to the patient and informed written consent was obtained. The patient was escorted to the procedure room and placed in the prone position. Pillows were utilized for proper positioning and comfort. Time out was performed in the procedure room with nursing staff confirming the patient's identity, procedure to be performed, allergies, and any blood thinning or anti-platelet medications. The patient's lower back was prepped with ChloraPrep and draped in a sterile fashion.? Sterile technique was maintained throughout the procedure.? Sterile gloves were used, a face mask was worn, and new single dose vials of all medications were used with the top being swabbed with alcohol and given time to dry prior to withdrawal of medication. A left AND right-sided oblique fluoroscopic view was obtained, with visualization of the L4 junction of the transverse process and superior articular process. 2% lidocaine was used to anesthetize the skin. With fluoroscopic guidance, an 150 mm 17 gauge curved tip 4mm active tip RF cannula was advanced to the superior margin of the transverse process and lateral to the superior articular process.? It was directed inferiorly and medially so that the tip struck the junction of the base of the transverse process and the superior articular process. The needle was then slightly advanced along the course of the L3 medial branch nerve. Proper placement was verified with oblique, AP, and lateral fluoroscopic views. Sensory tested with good response less than 1V. Motor testing was performed and was negative at 2V except for expected multifidus activation. A similar procedure was also performed at the ipsilateral L4 medial branch nerves and the dorsal ramus of L5 with negative motor testing at 2V except for expected multifidus activation. One cc of 2% lidocaine was injected through each needle tip to anesthetize the medial branch nerves.? After waiting for the local anesthetic to take effect, each nerve was then ablated at 60 degrees Celsius for 150 seconds.? The patient was monitored for any severe pain or radicular pain during the ablation and reported none. The patient tolerated the procedure well, and was transported to the recovery area for observation and discharge instructions.? Permanent images were saved and recorded. PAIN: PRE PROCEDURE 03/26 POST PROCEDURE 10/27 Plan: F/U PRN COMMENT: Repeat prn if 6 months relief of 50%
[2024-07-14] MEDS: Midazolam 2 MG/2 ML VIAL IVP (08:25)
[2024-07-14] MEDS: fentaNYL 100 MCG/2 ML VIAL IVP (08:25)
--- NOTE | 2024-07-14 09:23 | DI.RAD_ITS ---
Exam(s) XR PAIN CLINIC LUMBAR SP 2V EXAM: XR PAIN CLINIC LUMBAR SP 2V CLINICAL HISTORY: Dx: Lumbar Spondylosis. TECHNIQUE: Fluoroscopy was provided for the referring physician for guidance with performing pain cl inic injection procedure. COMPARISON: No exams were available for comparison FINDINGS: Please see procedure note for details. Fluoro time: 87 seconds RADIATION DOSE DELIVERED: berkley Velasquez=73.1 mGy
[2024-07-14] MEDS: Nerve Block Tray 1 EACH MC (09:28)
[2024-07-14] MEDS: Lidocaine 2% Multi-Dose 20 ML VIAL IJ (09:28)
== END 2024-07-14 07:36 | disposition home or self-care (01) ==
LOC: PC 07:35
PROVIDERS: PCP Internal Medicine; Visit Provider Anesthesiology Pain Medicine
DX: M54.50 Low back pain, unspecified (principal); M47.817 Spondylosis without myelopathy or radiculopathy, lumbosacral region
CPT/HCPCS: 00123; 64635; 64636; 72100; J2003; J2250; J3010

== ENCOUNTER 2024-11-24 16:56 | Outpatient (REF) | payer MEDICARE, SELFPAY ==
[2024-11-24 18:05] LABS: Bilirubin Negative (Negative); Blood Negative (Negative); Clarity Clear (Clear); Glucose Negative (Negative); Ketones Negative (Negative); Leukocyte Esterase Negative (Negative); Nitrite Negative (Negative); Urobilinogen 0.2 mg/dL (Up to 0.2); pH 5.5 (5-8)
== END 2024-11-24 16:57 | disposition home or self-care (01) ==
LOC: LBN 16:56
PROVIDERS: PCP Internal Medicine; Visit Provider Obstetrics & Gynecology Gynecology
DX: R82.998 Other abnormal findings in urine (principal)
CPT/HCPCS: 81003